=== PATIENT | male | born 1930 | race Caucasian/White ===

== ENCOUNTER 2018-01-11 08:50 | Day surgery (SDC) | payer OTHER ==
[2018-01-11] MEDS ORDERED: EPINEPHRINE/PF 1 MG/ML AMP ONE (09:10)
[2018-01-11] MEDS ORDERED: NS 0.9% VIAL 10 ML ONE (09:10)
[2018-01-11] MEDS ORDERED: BALANCED SALT IRRIG PLAIN 500 ML BTL IRR ONE (09:10)
[2018-01-11] MEDS ORDERED: DUOVISC 1 KIT OPTH ONE (09:10)
[2018-01-11] MEDS ORDERED: NA CHLORIDE 0.9% 500 ML ONE (09:16)
[2018-01-11] MEDS: LIDOCAINE 2% MPF 5 ML VIAL ONE ×2 (09:27→11:00)
[2018-01-11] MEDS: TETRACAINE HCL 0.5% 2ML OPTH ONE ×2 (09:27→10:59)
[2018-01-11] MEDS: BUPIVACAINE 0.25% PF 10 ML VIAL ONE ×2 (09:28→11:00)
[2018-01-11] MEDS: CYCLOPENTOLATE 1% OPTH 2 ML ONE ×3 (09:35→09:45)
[2018-01-11] MEDS: PHENYLEPHRINE 10% OPTH 5ML ONE ×3 (09:35→09:45)
[2018-01-11] MEDS ORDERED: LIDOCAINE 2% MPF 5 ML VIAL ONE (10:52)
[2018-01-11] MEDS ORDERED: PROPOFOL 200 MG/20 ML VIAL IV ONE (10:52)
[2018-01-11] MEDS: MOXIFLOXACIN HCL 10 DROPS/ML **OR USE OPTH ONE ×2 (11:21→11:50)
--- NOTE | 2018-01-11 12:03 | P.BOP ---
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
[2018-01-11 12:44] VITALS: BP 148/72; TEMP 97.3; O2SAT 96
--- NOTE | 2018-01-11 22:49 | OP ---
Date of Procedure: 01/11/2018 Surgeon: tSefanie De La Vega MD Anesthesiologist: 1. Adelina Mullins CRNA. 2. Gonzalo Gavin M.D. 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 Operation Performed: Phacoemulsification with toric intraocular lens implant, OS (left eye). Anesthesia: Per cataract surgery. Description Of Procedure: In day surgery, the patient was prepped with Betadine and draped. A conju nctival incision was made in the inferior nasal quadrant with Rachel scissors. A sub-Tenon block c onsisting of a 1:1 mixture of 2% Xylocaine and 0.25% bupivacaine was placed through the conjunctival incision with a blunt cannula. A [place] balloon was placed over the eye and the patient was transferr ed to the operating room. In the operating room the patient was prepped and draped in the usual sterile fashion for ophthalmic surgery. A lid speculum was placed in the OS. Two paracentesis sites were made superiorly and infer iorly in the limbal cornea. Viscoat was placed in the anterior chamber and a crescent blade was used to make a corneal groove and tunnel, and a keratome was used to enter the anterior chamber. Provisc was placed in the anterior chamber and a 360 degree capsulotomy was performed with a cystitome. The lens was hydrodissected with BSS and rotated freely. The lens was removed with a stop and chop tech nique. A 5.43 phaco CDE was used to remove the lens. Residual cortex was removed with the irrigatio n and aspiration. Provisc was placed in the capsular bag. A SN6AT7 +19.[address] in the capsular bag without complications. Irrigation and aspiration was used to remove residual v iscoelastic. The paracentesis sites were hydrated with BSS. The wound and paracentesis sites were i nspected and found to be watertight. Vigamox 0.07 cc was placed intracamerally at the end of the pro cedure. The eye was irrigated with balanced salt solution. The eye was patched with a soft cotton p atch and Browning metal shield. The patient was returned to day surgery in good condition. Comments: 1:5000 epinephrine was placed in the anterior chamber prior to Viscoat. Discharge Instructions: Mr. Melissa is discharged to home in good condition. He is to follow up [facility] Dr. De La Vega this afternoon at 2 and in the morning. MARY KAY/JONNY Voice ID: [id number] Report ID: [id number]
== END 2018-01-11 12:38 | disposition home or self-care (01) ==
LOC: OR 08:50
PROVIDERS: ATTEND Ophthalmology Retina Specialist
PROC: 08RK3JZ Replacement of Left Lens with Synthetic Substitute, Percutaneous Approach (ICD-10-PCS; principal; 2018-01-11 10:15)
DX: H25.12 Age-related nuclear cataract, left eye (principal); H25.012 Cortical age-related cataract, left eye; H52.222 Regular astigmatism, left eye; H40.10X0 Unspecified open-angle glaucoma, stage unspecified; H35.30 Unspecified macular degeneration; H43.813 Vitreous degeneration, bilateral; I10 Essential (primary) hypertension; E87.5 Hyperkalemia; E78.00 Pure hypercholesterolemia, unspecified; Z87.891 Personal history of nicotine dependence; Z79.82 Long term (current) use of aspirin; Z88.6 Allergy status to analgesic agent; Z83.518 Family history of other specified eye disorder
CPT/HCPCS: 66984; J0171; V2787